=== PATIENT | female | born 1985 | race Caucasian/White ===

== ENCOUNTER 2016-09-20 17:56 | Emergency (ER) | payer SELFPAY ==
[~2016-09-20] VITALS: Ht 160 cm; Wt 59.0 kg
[2016-09-20 18:33] VITALS: BP 125/83
[2016-09-20 21:04] LABS: BASOPHILS # (AUTO) 0.1 K/uL (0.00-0.22); BASOPHILS % (AUTO) 1.1 % (0.0-2.0); EOSINOPHILS # (AUTO) 0.2 K/uL (0-0.4); EOSINOPHILS % (AUTO) 2.1 % (0.0-4.0); HEMATOCRIT 40.4 % (36-48); HEMOGLOBIN 13.5 g/dL (12.0-16.0); LYMPHOCYTES # (AUTO) 1.4 K/uL (2.5-16.5); LYMPHOCYTES % (AUTO) 18.1 % (20.5-51.1); MEAN CORPUSCULAR HEMOGLOBIN 31 pg (27-31); MEAN CORPUSCULAR HGB CONC 33 g/dL (33-37); MEAN CORPUSCULAR VOLUME 92 fL (80-94); MONOCYTES # (AUTO) 0.4 K/uL (0.8-1.0); NEUTROPHILS # (AUTO) 5.9 K/uL (1.8-7.7); NEUTROPHILS % (AUTO) 73.7 % (42.2-75.2); PLATELET COUNT (AUTO) 230 K/uL (140-450); RED BLOOD CELL COUNT(AUTO) 4.39 MIL/uL (4.20-5.40); RED CELL DISTRIBUTION WIDTH 12.6 % (11.6-13.7)
[2016-09-20 21:17] LABS: APPEARANCE,URINE CLEAR (CLEAR); BILIRUBIN,URINE NEGATIVE (NEGATIVE); BLOOD, URINE NEGATIVE (NEGATIVE); COLOR,URINE YELLOW (YELLOW); LEUKOCYTE ESTERASE ,URINE 1+ (NEGATIVE); NITRITE, URINE NEGATIVE (NEGATIVE); PROTEIN,URINE NEGATIVE (NEGATIVE); UGLUCOSE NEGATIVE (NEGATIVE); UROBILINOGEN,URINE 0.2 EU/dL (0.2 - 1)
[2016-09-20 21:33] LABS: RBC,URINE 0-5 /HPF (0-5); WBC,URINE 0-5 /HPF (0-5)
[2016-09-20 21:34] LABS: BACTERIA,URINE 2+ /HPF (None Seen)
[2016-09-20] MEDS ORDERED: ACETAMINOPHEN EXTRA STRENGTH 500 MG TAB PO ONE (21:35)
[2016-09-20 21:59] VITALS: BP 122/79
== END 2016-09-20 21:59 | disposition home or self-care (01) ==
LOC: MED 17:56
DX: O20.0 Threatened abortion (principal); Z3A.14 14 weeks gestation of pregnancy; O23.42 Unspecified infection of urinary tract in pregnancy, second trimester
CPT/HCPCS: 36415; 76805; 81001; 81025; 84702; 85025; 86900; 86901; 87086; 99285

== ENCOUNTER 2016-12-13 09:15 | Observation (INO) | payer MEDICAID ==
[~2016-12-13] VITALS: Ht 160 cm; Wt 64.9 kg
[2016-12-13 10:03] VITALS: BP 108/67
[2016-12-13] MEDS ORDERED: PREN-380 PO (10:27)
== END 2016-12-13 13:23 | disposition home or self-care (01) ==
LOC: MLD 09:15
PROVIDERS: ADMIT Obstetrics & Gynecology; ATTEND Obstetrics & Gynecology
DX: O26.892 Other specified pregnancy related conditions, second trimester (principal); M54.9 Dorsalgia, unspecified; O32.1XX0 Maternal care for breech presentation, not applicable or unspecified; Z3A.26 26 weeks gestation of pregnancy
CPT/HCPCS: 59025; 76805; 81000; G0378; Q0092